=== PATIENT | male | born 1975 | race Caucasian/White ===

== ENCOUNTER 2017-02-25 11:37 | Emergency (ER) | payer OTHER ==
[~2017-02-25] VITALS: Ht 165.1 cm; Wt 89.9 kg
[2017-02-25 13:13] VITALS: BP 158/109
== END 2017-02-25 13:28 | disposition home or self-care (01) ==
LOC: ED 11:37
DX: M25.511 Pain in right shoulder (principal); E11.9 Type 2 diabetes mellitus without complications; I10 Essential (primary) hypertension
CPT/HCPCS: J1885; J2001; J3301

== ENCOUNTER 2017-10-04 02:16 | Inpatient (IN) | payer BC ==
[~2017-10-04] VITALS: Ht 162.6 cm; Wt 86.7 kg
[2017-10-04 03:05] LABS: microscopic required? NO
[2017-10-04 03:15] LABS: PLATELET COUNT 206 x10^3mcL (130-400); RED CELL DISTRIBUTION WIDTH 12.4 % (11.5-14.5)
[2017-10-04 03:17] LABS: BASOPHIL % 1.7 % (0-2)
[2017-10-04 03:19] LABS: CARBON DIOXIDE 26.4 mmol/L (21-32); CREATININE SERUM 1.4 mg/dL (0.7-1.3); POTASSIUM SERUM 3.4 mmol/L (3.5-5.1)
[2017-10-04 03:30] LABS: urine erythrocyte NEGATIVE (NEGATIVE)
[2017-10-04 03:35] LABS: ALBUMIN 3.7 g/dL (3.4-5.0); BILIRUBIN TOTAL 0.7 mg/dL (0.20-1.00); TOTAL PROTEIN, SERUM 7.4 g/dL (6.4-8.2)
[2017-10-04] MEDS ORDERED: METFORMIN HCL1000 MG PO (04:13)
[2017-10-04] MEDS ORDERED: ASPIR 8181 MG PO (04:13)
[2017-10-04 04:37] LABS: MAGNESIUM 1.2 mg/dL (1.8-2.4); PHOSPHOROUS 2.2 mg/dL (2.5-4.9)
[2017-10-04 04:40] LABS: CHOLESTEROL/HDL RATIO 5.2
[2017-10-04 04:46] LABS: FREE T4 1.24 ng/dL (0.76-1.46); FREE THYROXINE INDEX 2.9 ug/dL (1.4-4.5); T3 TOTAL 1.21 ng/mL; T4(THYROXINE) 7.6 ug/dL (4.7-13.3)
[2017-10-04] MEDS ORDERED: LOSARTAN POTASS1 TA8 PO (05:24)
[2017-10-04] MEDS ORDERED: NATURE'S BLEND F1 MG PO (05:44)
[2017-10-04] MEDS ORDERED: LOSARTAN POTASS1 TAB PO (05:44)
[2017-10-04 07:44] LABS: AMPHETAMINE QUAL UR NONE DETECTED (NEG <=1000)
[2017-10-04 09:03] VITALS: BP 123/87
[2017-10-04 10:00] VITALS: BP 129/82
[2017-10-04 17:59] VITALS: BP 120/86
[2017-10-04 21:42] VITALS: BP 121/81
[2017-10-05 06:11] VITALS: BP 125/82
[2017-10-05 06:31] LABS: BASOPHIL % 0.5 % (0-2); PLATELET COUNT 165 x10^3mcL (130-400); RED CELL DISTRIBUTION WIDTH 13.2 % (11.5-14.5)
[2017-10-05 06:46] LABS: CALCIUM 8.1 mg/dL (8.5-10.1); CARBON DIOXIDE 29.6 mmol/L (21-32); CHLORIDE SERUM 103 mmol/L (98-107); CREATININE SERUM 1.1 mg/dL (0.7-1.3); GFR1 > 60 mL/min; GLUCOSE SERUM 212 mg/dL (74-106); MAGNESIUM 1.7 mg/dL (1.8-2.4); POTASSIUM SERUM 3.6 mmol/L (3.5-5.1); SODIUM SERUM 137 mmol/L (136-145)
[2017-10-05 07:45] VITALS: BP 185/85
[2017-10-05] MEDS ORDERED: GLU5 PO (11:18)
[2017-10-05] MEDS ORDERED: LEVAQUIN750 MG PO (12:17)
[2017-10-05] MEDS ORDERED: FLA500 PO (12:17)
[2017-10-05] MEDS ORDERED: LAC PO (12:17)
[2017-10-05 12:33] VITALS: BP 143/96
== END 2017-10-05 13:50 | disposition home or self-care (01) | DRG 871 ==
LOC: ED 02:16 → DU 04:01
PROVIDERS: Emergency Medicine; ADMIT Family Medicine
DX: A41.9 Sepsis, unspecified organism (principal); N17.0 Acute kidney failure with tubular necrosis; K35.80 Unspecified acute appendicitis; I25.2 Old myocardial infarction; E87.6 Hypokalemia; E83.42 Hypomagnesemia; E83.39 Other disorders of phosphorus metabolism; Z79.82 Long term (current) use of aspirin; Z79.84 Long term (current) use of oral hypoglycemic drugs; Z68.33 Body mass index [BMI] 33.0-33.9, adult; Z86.73 Personal history of transient ischemic attack (TIA), and cerebral infarction without residual deficits; I10 Essential (primary) hypertension; E11.9 Type 2 diabetes mellitus without complications; Z83.3 Family history of diabetes mellitus; E11.65 Type 2 diabetes mellitus with hyperglycemia; Z91.19 Patient's noncompliance with other medical treatment and regimen; E66.3 Overweight; E78.5 Hyperlipidemia, unspecified; D64.9 Anemia, unspecified; R65.20 Severe sepsis without septic shock
CPT/HCPCS: 82962; 83880; 84439; 87804; J1885; J2270; J2405; J2543; J3475; J7030; Q0092

== ENCOUNTER 2017-11-16 16:24 | Inpatient (IN) | payer BC, OTHER ==
[~2017-11-16] VITALS: Ht 162.6 cm; Wt 87.2 kg
[~2017-11-16 16:24] MED LIST: ASPIR 8181 MG PO; FLA500 PO; GLU5 PO; LAC PO; LEVAQUIN750 MG PO; LOSARTAN POTASS1 TA8 PO; LOSARTAN POTASS1 TAB PO; METFORMIN HCL1000 MG PO; NATURE'S BLEND F1 MG PO
[2017-11-16 18:51] LABS: microscopic required? NO
[2017-11-16 19:04] LABS: BASOPHIL % 0.4 % (0-2); PLATELET COUNT 199 x10^3mcL (130-400); RED CELL DISTRIBUTION WIDTH 13.7 % (11.5-14.5)
[2017-11-16 19:14] LABS: CALCIUM 8.4 mg/dL (8.5-10.1); CARBON DIOXIDE 27.2 mmol/L (21-32); CREATININE SERUM 2.9 mg/dL (0.7-1.3)
[2017-11-16 19:16] LABS: ALBUMIN 3.7 g/dL (3.4-5.0); BILIRUBIN TOTAL 0.6 mg/dL (0.20-1.00); TOTAL PROTEIN, SERUM 7.1 g/dL (6.4-8.2)
[2017-11-16 19:21] LABS: UA SPECIFIC GRAVITY 1.015 (1.005-1.035); urine erythrocyte NEGATIVE (NEGATIVE)
[2017-11-16 20:33] VITALS: BP 174/109
[2017-11-16 21:02] LABS: MAGNESIUM 1.7 mg/dL (1.8-2.4); PHOSPHOROUS 4.1 mg/dL (2.5-4.9)
[2017-11-16 21:05] LABS: CHOLESTEROL/HDL RATIO 5.5
[2017-11-16 21:08] LABS: T3 TOTAL 0.78 ng/mL
[2017-11-16 21:11] LABS: FREE T4 1.15 ng/dL (0.76-1.46); FREE THYROXINE INDEX 3.2 ug/dL (1.4-4.5)
[2017-11-16 21:32] VITALS: BP 140/91
[2017-11-16 23:26] LABS: AMPHETAMINE QUAL UR NONE DETECTED (NEG <=1000)
[2017-11-17 05:59] VITALS: BP 127/86
[2017-11-17 07:39] LABS: CALCIUM 7.9 mg/dL (8.5-10.1); CARBON DIOXIDE 26.2 mmol/L (21-32); CREATININE SERUM 2.7 mg/dL (0.7-1.3); MAGNESIUM 1.6 mg/dL (1.8-2.4); PHOSPHOROUS 3.8 mg/dL (2.5-4.9); POTASSIUM SERUM 4.3 mmol/L (3.5-5.1)
[2017-11-17 07:52] LABS: BASOPHIL % 0.5 % (0-2); PLATELET COUNT 188 x10^3mcL (130-400); RED CELL DISTRIBUTION WIDTH 13.7 % (11.5-14.5)
[2017-11-17 09:48] VITALS: BP 138/88
[2017-11-17 12:41] VITALS: Ht 162.6 cm; Wt 87.2 kg
[2017-11-17 13:11] VITALS: BP 149/94
[2017-11-17 16:23] LABS: CALCIUM 7.8 mg/dL (8.5-10.1); CARBON DIOXIDE 27.3 mmol/L (21-32); CREATININE SERUM 2.3 mg/dL (0.7-1.3); POTASSIUM SERUM 3.6 mmol/L (3.5-5.1)
[2017-11-17 18:13] VITALS: BP 141/92
[2017-11-17 20:01] VITALS: BP 146/99
[2017-11-18] VITALS (7 sets, daily range): BP systolic 122–195; BP diastolic 83–130
[2017-11-18 07:15] LABS: BASOPHIL % 0.5 % (0-2); PLATELET COUNT 187 x10^3mcL (130-400); RED CELL DISTRIBUTION WIDTH 13.3 % (11.5-14.5)
[2017-11-18 07:24] LABS: CARBON DIOXIDE 28.4 mmol/L (21-32); CREATININE SERUM 1.9 mg/dL (0.7-1.3); MAGNESIUM 2.6 mg/dL (1.8-2.4); PHOSPHOROUS 3.8 mg/dL (2.5-4.9); POTASSIUM SERUM 3.7 mmol/L (3.5-5.1)
[2017-11-18] MEDS ORDERED: LEVAQUIN750 MG PO (17:41)
[2017-11-18] MEDS ORDERED: ONDANSETRON4 M3 PO (17:42)
[2017-11-18] MEDS ORDERED: TYL325 PO (17:42)
[2017-11-18] MEDS ORDERED: FLA500 PO (17:43)
[2017-11-19] VITALS (9 sets, daily range): BP systolic 121–172; BP diastolic 87–111
[2017-11-19 07:20] LABS: BASOPHIL % 0.5 % (0-2); PLATELET COUNT 204 x10^3mcL (130-400); RED CELL DISTRIBUTION WIDTH 13.4 % (11.5-14.5)
[2017-11-19 07:33] LABS: CALCIUM 7.9 mg/dL (8.5-10.1); CARBON DIOXIDE 28.3 mmol/L (21-32); CREATININE SERUM 1.4 mg/dL (0.7-1.3); MAGNESIUM 1.9 mg/dL (1.8-2.4); PHOSPHOROUS 3.5 mg/dL (2.5-4.9); POTASSIUM SERUM 3.6 mmol/L (3.5-5.1)
[2017-11-19] MEDS ORDERED: LIPI20 PO (15:22)
[2017-11-19] MEDS ORDERED: HYDROCHLOROTH12.5 M3 PO (15:22)
[2017-11-19] MEDS ORDERED: COZ50 PO (15:22)
[2017-11-19] MEDS ORDERED: OSCD PO (15:58)
[2017-11-19] MEDS ORDERED: GLU5 PO (20:51)
== END 2017-11-19 21:05 | disposition home or self-care (01) | DRG 683 ==
LOC: ED 16:24 → DU 19:48
PROVIDERS: Emergency Medicine; Family Medicine; Student in an Organized Health Care Education/Training Program
DX: N17.0 Acute kidney failure with tubular necrosis (principal); D68.69 Other thrombophilia; E83.42 Hypomagnesemia; E78.1 Pure hyperglyceridemia; I10 Essential (primary) hypertension; E11.65 Type 2 diabetes mellitus with hyperglycemia; E66.9 Obesity, unspecified; R91.8 Other nonspecific abnormal finding of lung field; E83.51 Hypocalcemia; K76.0 Fatty (change of) liver, not elsewhere classified; Z90.49 Acquired absence of other specified parts of digestive tract; I25.2 Old myocardial infarction; Z86.73 Personal history of transient ischemic attack (TIA), and cerebral infarction without residual deficits; Z83.3 Family history of diabetes mellitus; Z68.33 Body mass index [BMI] 33.0-33.9, adult
CPT/HCPCS: 82962; 83880; 84439; J0360; J1815; J1885; J2405; J3475; J7030; Q0092